=== PATIENT | male | born 1955 | race Caucasian/White ===

== ENCOUNTER 2016-12-07 17:14 | Inpatient (IN) | payer OTHER ==
[~2016-12-07] VITALS: Ht 182.9 cm; Wt 87.5 kg
[~2016-12-07 17:14] MED LIST: AMLODIPINE BESY10 MG PO; ASPIR 8181 MG PO; BUMETANIDE1 MG PO; BUMETANIDE2 MG PO; BUMEX 1MG TABLET1 MG GT; CALCIUM ACETAT667 MG PO; CLARITIN10 MG PO; COLACE 100MG C100 MG PO; COREG 12.5MG12.5 MG PO; COREG 25MG TAB25 MG PO; COUMADIN 5MG TAB5 MG PO; DAKIN'S SOLUTI500 ML EXT; FERROUS SULFAT325 MG PO; HYDRALAZINE HCL50 MG PO; IMDUR ER TAB 6060 MG PO; ISOSORBIDE DINI10 MG PO; LASIX40 MG PO; LEVAQUIN TAB 5500 MG PO; LIPITOR TAB 2020 MG PO; LISINOPRIL5 MG PO; LORTAB 7.5-3251 EACH PO; METOLAZONE5 MG PO; MIRALAX PACK 171 PKT GT; NEURONTIN 300300 MG PO; OMNICEF 300 MG300 MG PO; TOPROL XL 50 MG50 MG PO
[2016-12-08 03:27] LABS: HEMOGLOBIN 9.4 gm/dl (14.0-17.5); RED BLOOD COUNT 3.03 M/UL (4.20-5.50)
[2016-12-09 03:53] LABS: HEMOGLOBIN 9.5 gm/dl (14.0-17.5); RED BLOOD COUNT 3.07 M/UL (4.20-5.50); WHITE BLOOD COUNT 3.9 K/UL (4.5-11.0)
[2016-12-11] MEDS ORDERED: NEPRO CARB ST1000 ML PO (15:40)
[2016-12-11] MEDS ORDERED: DOXYCYCLINE HY100 MG PO (16:53)
[2017-04-29] MEDS ORDERED: ASPIR 8181 MG PO (00:59)
[2017-04-29] MEDS ORDERED: NEURONTIN 300300 MG PO (00:59)
[2017-04-29] MEDS ORDERED: HYDROCODON-ACE1 EAC2 PO (01:00)
[2017-05-07] MEDS ORDERED: FLONASE 0.05% N16 GM (12:42)
== END 2016-12-11 17:28 | disposition home or self-care (01) | DRG 871 ==
LOC: PROG CARE 17:14 → CCU 18:45 → PROG CARE 12-08 15:00
PROVIDERS: Hospitalist; ADMIT Internal Medicine
PROC: 5A1D60Z (ICD-10-PCS; principal; 2016-12-09)
DX: A41.9 Sepsis, unspecified organism (principal); N18.6 End stage renal disease; I50.23 Acute on chronic systolic (congestive) heart failure; I13.2 Hypertensive heart and chronic kidney disease with heart failure and with stage 5 chronic kidney disease, or end stage renal disease; E87.1 Hypo-osmolality and hyponatremia; L03.114 Cellulitis of left upper limb; L08.9 Local infection of the skin and subcutaneous tissue, unspecified; E86.1 Hypovolemia; I25.10 Atherosclerotic heart disease of native coronary artery without angina pectoris; J44.9 Chronic obstructive pulmonary disease, unspecified; F17.210 Nicotine dependence, cigarettes, uncomplicated; I27.2 Other secondary pulmonary hypertension; Z95.1 Presence of aortocoronary bypass graft; I48.2 Chronic atrial fibrillation; Z99.2 Dependence on renal dialysis; Z22.322 Carrier or suspected carrier of Methicillin resistant Staphylococcus aureus; Z95.2 Presence of prosthetic heart valve; Z79.01 Long term (current) use of anticoagulants; Z79.82 Long term (current) use of aspirin; Z79.02 Long term (current) use of antithrombotics/antiplatelets; Z79.899 Other long term (current) drug therapy; Z84.1 Family history of disorders of kidney and ureter
CPT/HCPCS: ECHO; 36415; 71020; 80048; 80202; 83605; 84132; 85014; 85018; 85027; 85610; 87040; 90935; 90937; 93306; 94640; J1644; J2543; J3370; J7030; J7050; J7070; Q4081

== ENCOUNTER 2017-02-12 14:54 | Observation (INO) | payer OTHER ==
[~2017-02-12] VITALS: Ht 182.9 cm; Wt 84.1 kg
[~2017-02-12 14:54] MED LIST changes: +DOXYCYCLINE HY100 MG PO; +NEPRO CARB ST1000 ML PO
[2017-02-12 15:56] LABS: HEMOGLOBIN 11.6 gm/dl (14.0-17.5); RED BLOOD COUNT 3.74 M/UL (4.20-5.50); WHITE BLOOD COUNT 6.3 K/UL (4.5-11.0)
[2017-02-12] MEDS ORDERED: HYDRALAZINE HCL50 MG PO (20:28)
[2017-02-13] MEDS ORDERED: TIZANIDINE HCL4 M1 PO (11:26)
[2017-02-13] MEDS ORDERED: BUMETANIDE2 MG PO (11:27)
[2017-02-14 05:55] LABS: RED BLOOD COUNT 3.54 M/UL (4.20-5.50); WHITE BLOOD COUNT 5.4 K/UL (4.5-11.0)
[2017-04-29] MEDS ORDERED: ASPIR 8181 MG PO (00:59)
[2017-04-29] MEDS ORDERED: NEURONTIN 300300 MG PO (00:59)
[2017-04-29] MEDS ORDERED: HYDROCODON-ACE1 EAC2 PO (01:00)
[2017-05-07] MEDS ORDERED: FLONASE 0.05% N16 GM (12:42)
== END 2017-02-15 09:59 | disposition left against medical advice (07) ==
LOC: ER1 14:54 → ZEROF 18:48 → MED SURG 4 20:05
PROVIDERS: Family Medicine; ADMIT Internal Medicine
DX: R06.00 Dyspnea, unspecified (principal); N18.6 End stage renal disease; R79.89 Other specified abnormal findings of blood chemistry; J90 Pleural effusion, not elsewhere classified; I25.10 Atherosclerotic heart disease of native coronary artery without angina pectoris; I13.11 Hypertensive heart and chronic kidney disease without heart failure, with stage 5 chronic kidney disease, or end stage renal disease; I50.32 Chronic diastolic (congestive) heart failure; E78.5 Hyperlipidemia, unspecified; I27.2 Other secondary pulmonary hypertension; I48.0 Paroxysmal atrial fibrillation; F17.210 Nicotine dependence, cigarettes, uncomplicated; Z99.2 Dependence on renal dialysis; Z95.1 Presence of aortocoronary bypass graft; Z95.2 Presence of prosthetic heart valve; Z79.01 Long term (current) use of anticoagulants; Z79.899 Other long term (current) drug therapy
CPT/HCPCS: 36415; 71010; 80048; 80053; 82550; 82553; 83605; 83874; 84484; 85025; 85027; 85610; 85730; 87040; 90935; 90937; 93005; 94664; 99285; G0378; J1644; J7030

== ENCOUNTER 2017-03-15 04:56 | Emergency (ER) | payer OTHER ==
[~2017-03-15 04:56] MED LIST changes: +TIZANIDINE HCL4 M1 PO
[2017-03-15 05:32] LABS: HEMOGLOBIN 10.3 gm/dl (14.0-17.5); RED BLOOD COUNT 3.33 M/UL (4.20-5.50)
[2017-04-29] MEDS ORDERED: NEURONTIN 300300 MG PO (00:59)
[2017-04-29] MEDS ORDERED: ASPIR 8181 MG PO (00:59)
[2017-04-29] MEDS ORDERED: HYDROCODON-ACE1 EAC2 PO (01:00)
[2017-05-07] MEDS ORDERED: FLONASE 0.05% N16 GM (12:42)
== END 2017-03-15 16:45 | disposition home or self-care (01) ==
LOC: ER1 04:56
PROVIDERS: Student in an Organized Health Care Education/Training Program
DX: I13.2 Hypertensive heart and chronic kidney disease with heart failure and with stage 5 chronic kidney disease, or end stage renal disease (principal); N18.6 End stage renal disease; J90 Pleural effusion, not elsewhere classified; I50.9 Heart failure, unspecified; I25.810 Atherosclerosis of coronary artery bypass graft(s) without angina pectoris; F17.210 Nicotine dependence, cigarettes, uncomplicated; Z95.2 Presence of prosthetic heart valve; Z95.1 Presence of aortocoronary bypass graft; Z79.01 Long term (current) use of anticoagulants; Z79.02 Long term (current) use of antithrombotics/antiplatelets; Z79.82 Long term (current) use of aspirin; Z79.899 Other long term (current) drug therapy
CPT/HCPCS: 36415; 71010; 71250; 80053; 82550; 82553; 83605; 83874; 83880; 84484; 85025; 87040; 93005; 99285